=== PATIENT | female | born 1955 | race Caucasian/White ===

== ENCOUNTER 2023-10-31 10:02 | Day surgery (SDC) | payer MEDICARE ==
[2023-10-25 15:44] LABS: BASOPHILS % (AUTO) 0.9 % (0-1); EOSINOPHILS # (AUTO) 0.2 X10'3 (0-0.9); EOSINOPHILS % (AUTO) 4.3 % (0-6); LYMPHOCYTES # (AUTO) 2.2 X10'3 (1.1-4.8); LYMPHOCYTES % (AUTO) 37.9 % (21-51); MEAN CORPUSCULAR HEMOGLOBIN 29.8 PG (27.0-31.0); MEAN CORPUSCULAR HGB CONC 33.5 g/dL (33.0-36.5); MEAN CORPUSCULAR VOLUME 88.9 FL (78-98); MEAN PLATELET VOLUME 7.3 FL (7.4-10.4); MONOCYTES # (AUTO) 0.7 X10'3 (0-0.9); MONOCYTES % (AUTO) 12.2 % (2-12); NEUTROPHILS # (AUTO) 2.6 X10'3 (1.8-7.7); NEUTROPHILS % (AUTO) 44.7 % (42-75); PRE OP HEMATOCRIT 37.3 % (35.0-45.0); PRE OP HEMOGLOBIN 12.5 g/dL (12.0-16.0); PRE OP PLATELET COUNT 338 X10'3 (140-440); PRE OP WHITE BLOOD COUNT 5.7 10'3 (4.8-10.8); RED BLOOD COUNT 4.19 X10'6 (4.20-5.60)
[2023-10-25 16:27] LABS: CHLORIDE 105 MMOL/L (99-107); PRE OP ANION GAP 8 (8-16); PRE OP SODIUM 142 MMOL/L (135-145); TOTAL CARBON DIOXIDE 29.2 MMOL/L (24-32)
[2023-10-25 17:02] LABS: ALBUMIN 3.7 G/DL (3.4-5.0); ALBUMIN/GLOBULIN RATIO 1.1 (1.1-1.5); ALKALINE PHOSPHATASE 96 IU/L (46-116); BLOOD UREA NITROGEN 14 MG/DL (7-18); BUN/CREATININE RATIO 18.9 (10.0-20.0); CALCIUM 8.8 MG/DL (8.5-10.1); CREATININE 0.74 MG/DL (0.40-0.90); PRE OP ALT 28 U/L (30-65); PRE OP AST 20 U/L (10-37); PRE OP BILIRUB, TOTAL 0.3 MG/DL (0.0-1.0); PRE OP GLUCOSE 89 MG/DL (70-104); TOTAL PROTEIN 7.1 G/DL (6.4-8.2); eGFR 78 ML/MIN
[~2023-10-31] VITALS: Ht 160 cm; Wt 78.6 kg
[2023-10-31] VITALS (9 sets, daily range): BP systolic 117–133; BP diastolic 53–82; PULSE 72–82; RESP 11–16; TEMP 98.2; O2SAT 93–97
[2023-10-31] MEDS: clindamycin-Cleocin 900mg/D5W 50 ML IV ONE (05:30)
[~2023-10-31 10:02] MED LIST: FLUO20CA39 PO; LYR75C PO
[2023-10-31] MEDS: famotidine 20mg tablet PO ONE (11:22)
[2023-10-31] MEDS: ringers solution, lacted 1,000 ML IV SCH (11:27)
[2023-10-31] MEDS ORDERED: epiNEPHrine 1 mg/ml 30ml MDV ONE (12:19)
[2023-10-31] MEDS ORDERED: triamcinolone acetonide 40mg/ml inj ONE (12:19)
[2023-10-31] MEDS ORDERED: ROPIVAcaine 0.5% (5mg/ml) 30ml vial ONE ×2 (12:19→12:35)
[2023-10-31] MEDS ORDERED: LIDOcaine 1% w/EPI 1:100,000 inj. MDV 50 ML VIAL ONE (12:19)
[2023-10-31] MEDS ORDERED: dexamethasone sod phosphate 4mg/ml inj. ONE (12:35)
[2023-10-31] MEDS ORDERED: propofol inj 20 ML IV ONE (12:35)
[2023-10-31] MEDS ORDERED: LIDOcaine 2% (20mg/ml) 5ml vial ONE (12:35)
[2023-10-31] MEDS ORDERED: acetaminophen 1,000mg/100ml IV 100 ML IV ONE (12:36)
[2023-10-31] MEDS ORDERED: ondansetron/PF 4mg/2ml inj ONE (12:36)
[2023-10-31] MEDS ORDERED: sevoflurane 250ml liquid IH ONE (12:56)
[2023-10-31] MEDS ORDERED: dexamethasone sod phosphate 10mg/ml inj ONE (12:56)
[2023-10-31] MEDS ORDERED: ePHEDrine 50MG/ML INJ. ONE (13:34)
[2023-10-31] MEDS ORDERED: morphine 2 MG/ML inj. syringe IV PRN (13:45)
[2023-10-31] MEDS ORDERED: morphine 4 MG/ML inj SYRINge IV PRN (13:45)
[2023-10-31] MEDS ORDERED: hydrALAZINE 20mg/ml inj. IV PRN (13:45)
[2023-10-31] MEDS ORDERED: labetalol 20mg/4ml (5mg/ml) syringe IV PRN (13:45)
[2023-10-31] MEDS ORDERED: ondansetron/PF 4mg/2ml inj IV PRN (13:45)
[2023-10-31] MEDS ORDERED: ringers solution, lacted 1,000 ML IV SCH (13:45)
[2023-10-31] MEDS ORDERED: fentaNYL/PF 50MCG/1 ML 2ML syringe IV PRN ×2 (13:45)
[2023-10-31] MEDS: LIDOcaine 1% w/epiNEPHrine 1:200,000 30ml vial IJ ONE (13:57)
[2023-10-31] MEDS: ROPIVAcaine 0.5% (5mg/ml) 30ml vial IJ ONE (13:58)
== END 2023-10-31 17:04 | disposition home or self-care (01) ==
LOC: PAS 10:02
PROVIDERS: ATTEND Orthopaedic Surgery
DX: M75.122 Complete rotator cuff tear or rupture of left shoulder, not specified as traumatic (principal); M75.42 Impingement syndrome of left shoulder; M75.02 Adhesive capsulitis of left shoulder; M75.52 Bursitis of left shoulder; G89.18 Other acute postprocedural pain; E66.9 Obesity, unspecified; F32.A Depression, unspecified; M79.7 Fibromyalgia; Z79.899 Other long term (current) drug therapy; Z90.49 Acquired absence of other specified parts of digestive tract; Z90.89 Acquired absence of other organs; Z98.890 Other specified postprocedural states; Z68.31 Body mass index [BMI] 31.0-31.9, adult; Z88.0 Allergy status to penicillin
CPT/HCPCS: 29823; 29826; 29827; 36415; 64415; 80053; 82948; 85025; C1713; J0131; J1100; J2405; J2704; J2795; J3490; J7030; J7120; Z7506; Z7508; Z7512; A4215; A4565; A4618; A6253; A6449; J0171; J3301